=== PATIENT | female | born 1955 | race Caucasian/White ===

== ENCOUNTER 2020-06-10 15:48 | Inpatient (IN) | payer OTHER, BC ==
[~2020-06-10] VITALS: Ht 157.5 cm; Wt 83.9 kg
[~2020-06-10 15:48] MED LIST: BISOPROLOL FUMAR5 MG PO; FOLIC ACID0.4 MG PO; HYDROCODON-ACE1 EAC7 PO; HYDROXYCHLOROQ200 M1 PO; IBU-200200 MG PO; LEVOTHYROXINE137 MCG PO; LISINOPRIL-HCT1 EAC2 PO; MAGNESIUM100 MG PO; MULTIVITAMINS PO; VITAMIN D325 MC3 PO
[2020-06-10 15:52] VITALS: BP 139/77
[2020-06-10] MEDS ORDERED: ROXICODONE5 MG PO (17:29)
[2020-06-10] MEDS ORDERED: MORPHINE SULFAT15 MG PO (17:29)
[2020-06-10 17:38] LABS: ABSOLUTE NEUTROPHILS 4.6 thou/uL (1.4-8.2); BASOPHILS 0.7 % (0.0-2.0); EOSINOPHILS 0.5 % (0.0-3.0); HEMATOCRIT 32.5 % (37.0-47.0); HEMOGLOBIN 10.8 gm/dL (12.0-15.0); LYMPHOCYTES 12.3 % (24.0-44.0); MCH 28.5 pg (26.0-34.0); MCHC 33.2 g/dL (28.0-37.0); MCV 85.8 fL (80.0-100.0); PLATELET COUNT 478 thou/uL (150-400); POLYS 77.5 % (36.0-66.0); RBC 3.79 mil/uL (4.20-5.00); RDW 15.5 % (10.5-14.5)
[2020-06-10 17:47] LABS: CALCIUM 9.2 mg/dL (8.5-10.1); CREATININE 0.8 mg/dL (0.6-1.0); POTASSIUM 3.4 mmol/L (3.5-5.1)
[2020-06-10 17:55] LABS: ALBUMIN 3.3 g/dL (3.4-5.0); TOTAL BILIRUBIN 0.5 mg/dL (0.2-1.0); TOTAL PROTEIN 7.3 g/dL (6.4-8.2)
[2020-06-10 18:17] VITALS: BP 160/69
--- NOTE | 2020-06-10 18:24 | NUR ---
ED NURSE ATTEMPTED TO CALL REPORT TO INPATIENT NURSE, WAS TOLD SHE WILL CALL BACK IN 5 MINUTES
[2020-06-10 18:50] VITALS: BP 148/77
[2020-06-10 20:49] VITALS: BP 152/81
[2020-06-11 00:25] LABS: URINE BILIRUBIN NEGATIVE (Negative); URINE BLOOD NEGATIVE (Negative); URINE CLARITY CLEAR; URINE COLOR YELLOW; URINE GLUCOSE-RANDOM* NEGATIVE (Negative); URINE KETONES NEGATIVE (Negative); URINE LEUKOCYTES-REFLEX NEGATIVE (Negative); URINE NITRITE-REFLEX NEGATIVE (Negative); URINE PROTEIN (DIPSTICK) NEGATIVE (Negative); URINE SPECIFIC GRAVITY >= 1.030 (1.005-1.035); URINE UROBILINOGEN 0.2 E.U./dl (0.2-1.0)
[2020-06-11 04:50] VITALS: BP 133/78
--- NOTE | 2020-06-11 07:34 | NUR ---
PT WAS ADMITTED TO THE UNIT FROM THE ER IN A STABLE CONDITION.PT C/O PAIN ON HER L LEG,MANAGED WITH MED.UA SENT JANY TO LAB.L LEG INCISION RED AND WARM TO TOUCH.PT WAS STARTED ON LOVENOX FOR HER DVT FIRST DOSE GIVEN THIS SHIFT.REPORT TO AM NURSE.
[2020-06-11 07:59] VITALS: BP 130/70
--- NOTE | 2020-06-11 09:27 | NUR ---
ASSESSMENT: CM REVIEWED CHART AND SPOKE WITH PT. PT IS ALERT AND ORIENTED X4. PT WAS ADMITTED DUE TO KNEE FX. PT HAD A L TKA AT [facility] ON 05/26 AND NOW HAS A PERIPROSTHETIS FX. PT IS TO USE KNEE IMMOBILIZER. PT LIVES IN A HOUSE ALONE. PT REPORTS HAVING A RAMP TO ENTER THE HOME AND DOES NOT HAVE TO USE ANY STEPS. PT REPORTS SHE HAS A CANE AND A WALKER AT THE HOME. PT WAS [facility]TING [facility] . CM NOTIFIED [facility] OF PTS ADMISSION AND WILL CONTINUE TO UPDATE. A CONSULT HAS BEEN PLACED FOR 5N ACUTE REHAB. CM NOTIFIED [facility]. AWAITING FURTHER INPUT AT THIS TIME AND THERAPY EVAL. CM WILL CONTINUE TO FOLLOW TO ASSIST NEEDED.
--- NOTE | 2020-06-11 13:34 | NUR ---
I have reviewed the documentation by LISE PENDLETON from 06/11/20 to 06/11/20 and I concur with it. EVERETTE SHI, PT, DPT
[2020-06-11 15:19] VITALS: BP 140/78
--- NOTE | 2020-06-11 15:46 | NUR ---
PT CARE ASSUMED AT 0700. A&Ox4. IMMOBILIZER IN PLACE ON L.LEG. PER DR. PEREZ PT CAN GET UP TO THE RECLINER AND CAN MOBILIZE WHEN IMMOBILIZER IN PLACE. 5N FOLLOWING CASE. IV PATENT WITH NO REDNESS OR EDEMA, SALINE LOCKED. PAIN CONTROLLED WELL WITH PAIN MEDICATION ON BOARD. FALL PROTOCOL IN PLACE. CALL LIGHT IN REACH. DVT POSITIVE, NO SCD'S IN PLACE. REPORT GIVEN TO JAVY SCHAFER AT 4130 AND CARE HANDED OVER.
[2020-06-11 19:46] VITALS: BP 135/81
--- NOTE | 2020-06-12 03:29 | NUR ---
ASSUMED PT CARE AT SHIFT CHANGE. PT IS A&OX4. PT IS PLEASANT. PT HAS AN IV IN HER RIGHT AC. PT USES WALKER WITH IMMOBILIZER IN PLACE TO USE THE BSC. PT PREFERS TO TAKE IT OFF WHILE SHE IS IN BED. PT DECIDED TO USE THE BEDPAN OVERNIGHT BECAUSE IT TAKES WHAT SHE FEELS LIKE IS TOO LONG TO GET OUT OF BED. PT CALLS OUT APPRPRIATELY. PT STATES THAT SHE IS IN PAIN AND MEDICATION IS ADMINISTERED. FALL PRECAUTIONS IN PLACE. WILL CONTINUE TO MONITOR.
[2020-06-12 03:38] LABS: HEMATOCRIT 30.5 % (37.0-47.0); HEMOGLOBIN 10.1 gm/dL (12.0-15.0); MCH 28.6 pg (26.0-34.0); MCHC 33.2 g/dL (28.0-37.0); PLATELET COUNT 418 thou/uL (150-400); RBC 3.54 mil/uL (4.20-5.00); RDW 15.8 % (10.5-14.5); WBC 3.8 thou/uL (4.0-11.0)
[2020-06-12 04:09] VITALS: BP 136/77
[2020-06-12 04:10] LABS: CALCIUM 8.6 mg/dL (8.5-10.1); CREATININE 0.7 mg/dL (0.6-1.0); POTASSIUM 3.8 mmol/L (3.5-5.1)
[2020-06-12 07:16] VITALS: BP 135/70
[2020-06-12 08:05] VITALS: BP 135/70
[2020-06-12 08:39] LABS: ABSOLUTE NEUTROPHILS 2.5 thou/uL (1.4-8.2); ATYPICAL LYMPHS 1 %; LARGE PLATELETS OCCASIONAL
[2020-06-12] MEDS ORDERED: ELIQUIS5 MG PO (10:57)
[2020-06-12] MEDS ORDERED: PERCOCET 10-321 EACH PO (10:58)
[2020-06-12] MEDS ORDERED: PERCOCET PO (10:58)
--- NOTE | 2020-06-12 11:01 | NUR ---
ON-GOING ASSESSMENT: CM REVIEWED CHART AND SPOKE WITH ATTENDING AND [facility]N [facility]. PT IS MEDICALLY STABLE FOR DISCHARGE TO 5N TODAY. 5N [facility] STATING THEY CAN ACCEPT PT. PT IS AGREEABLE WITH PLAN AND STATES SHE WILL NOTIFY HER FAMILY. PLANS TO DISCHARGE TO 5N TODAY.
--- NOTE | 2020-06-12 12:59 | NUR ---
I have reviewed the documentation by LISE PENDLETON from 06/12/20 to 06/12/20 and I concur with it. EVERETTE SHI, PT, DPT
--- NOTE | 2020-06-12 13:54 | NUR ---
ASSUMED CARE OF PT AT 0700. PT IS A&OX4 AND VITAL SIGNS ARE STABLE. PT REPORTS PAIN TO LEFT KNEE BUT STATES THAT IT IS WELL CONTROLED AT THIS TIME. PT DENIES CHEST PAIN OR SOB THIS SHIFT. PT UP WITH ASSISTANCE WITH BRACE IN PLACE AND IS AWARE OF LIMITATIONS. ORDERS FOR DISCAHRGE TO REHAB THIS SHIFT. CALLED REPORT TO MAXIMINO PRIOR TO TRANSFER TO UNIT AT 1240.
== END 2020-06-12 12:34 | DRG 560 ==
LOC: ER 15:48 → 4S 17:31 → EROBS 17:31 → 4S 18:50
PROVIDERS: Emergency Medicine; Nurse Practitioner; ADMIT Orthopaedic Surgery Sports Medicine; ATTEND Orthopaedic Surgery Sports Medicine
DX: M97.12XA Periprosthetic fracture around internal prosthetic left knee joint, initial encounter (principal); I82.402 Acute embolism and thrombosis of unspecified deep veins of left lower extremity; E44.0 Moderate protein-calorie malnutrition; Z60.2 Problems related to living alone; M25.562 Pain in left knee; Z96.652 Presence of left artificial knee joint; M06.9 Rheumatoid arthritis, unspecified; I10 Essential (primary) hypertension; E03.9 Hypothyroidism, unspecified; M25.462 Effusion, left knee; E66.9 Obesity, unspecified; Z79.899 Other long term (current) drug therapy; M85.88 Other specified disorders of bone density and structure, other site; M81.0 Age-related osteoporosis without current pathological fracture; Z90.49 Acquired absence of other specified parts of digestive tract; Z88.2 Allergy status to sulfonamides; Z87.891 Personal history of nicotine dependence; Z95.1 Presence of aortocoronary bypass graft; Z68.33 Body mass index [BMI] 33.0-33.9, adult; Z79.82 Long term (current) use of aspirin; D64.9 Anemia, unspecified
CPT/HCPCS: 10195

== ENCOUNTER 2020-06-12 09:34 | Inpatient (IN) | payer OTHER, BC ==
[~2020-06-12] VITALS: Ht 157.5 cm; Wt 83.9 kg
[~2020-06-12 09:34] MED LIST changes: +MORPHINE SULFAT15 MG PO; +ROXICODONE5 MG PO
[2020-06-12] MEDS ORDERED: ELIQUIS5 MG PO (10:57)
[2020-06-12] MEDS ORDERED: PERCOCET 10-321 EACH PO (10:58)
[2020-06-12] MEDS ORDERED: PERCOCET PO (10:58)
[2020-06-12 12:45] VITALS: BP 130/67
--- NOTE | 2020-06-12 13:44 | NUR ---
PT ARRIVED AT 1150 FROM 4S. ALERT AND ORIENTED*4. C/O MILD JOHANNA KNEE PAIN 4/, LIDOCAINE PATCH PLACED ON RIGHT KNEE PER PT'S REQUEST. VITALS ARE STABLE. LEFT KNEE INCISION REMAINS DRY AND INTACT, KNEE IMMOBILISER REMAINS IN PLACE WHEN UP AND WITH ACTIVITIES. PT UP WITH 1 MIN ASSIST, GB AND WALKER WITH 50LB WGT BEARING ON LEFT LE. Q1H VISUAL CHECKS. CALL LIGHT WITHIN REACH. FALL PRECAUTIONS IN PLACE.
--- NOTE | 2020-06-12 16:25 | NUR ---
chart review. cm visited with david. intro to cm, team meeting and dcp. she is a & o x 3, pleasant and able to make her needs know. david lives in house alone, has a ramp. no stairs. lle mitzi villalba, fww, "my sister got me 4ww with seat. have some suport from my little younger sister, but she works. have friend that take me to my appointments. [facility] prior to hospital ."/david. has bsc, retired. manage own medication. was independet proir to hospital. still cooks and drives vehicle. "pcp dr oviedo"/david. will cont following as needed for dc needs.
[2020-06-12 22:01] VITALS: BP 104/66
--- NOTE | 2020-06-13 04:17 | NUR ---
ASSUMED CARE APPROX 1900 EVENING 06/12. PT SITTING IN RECLINER ALERT AND ORIENTED X4, PLEASANT AND COOPERATIVE. PT ASSISTED INTO GOWN AT HS AND BED. PT TOOK HS MEDS WITH WATER TOLERATING WELL. PT ASSIST WITH BEDPAN TO VOID LARGE AMT URINE TONIGHT. PT APPEARS TO BE SLEEPING SOUNDLY WITH HOURLY ROUNDING CHECKS. BED ALARM ON AND CALL LIGHT IN REACH. WILL CONTINUE TO MONITOR.
[2020-06-13 05:22] LABS: HEMATOCRIT 31.6 % (37.0-47.0); HEMOGLOBIN 10.4 gm/dL (12.0-15.0); MCH 28.7 pg (26.0-34.0); MCV 86.8 fL (80.0-100.0); RBC 3.64 mil/uL (4.20-5.00); RDW 15.9 % (10.5-14.5); WBC 4.1 thou/uL (4.0-11.0)
[2020-06-13 06:00] LABS: CALCIUM 8.8 mg/dL (8.5-10.1); CREATININE 0.7 mg/dL (0.6-1.0); POTASSIUM 3.9 mmol/L (3.5-5.1)
[2020-06-13 07:15] VITALS: BP 142/89
[2020-06-13 19:14] VITALS: BP 121/78
--- NOTE | 2020-06-13 20:00 | NUR ---
ASSUMED CARE OF PT AT 0700. PT IS A&OX4 AND VITAL SIGNS ARE STABLE. PT REPORTS PAIN TO LLE, MANAGED WITH PO MEDICATIONS. PT PARTICIAPTED IN SCHEDULED THERAPIES. LEG BRACE TO LLE IN PLACE WHEN AMBULATORY. PT CALLS APPROPRIATELY FOR ASSISTANCE. FALL PRECAUTIONS IN PLACE AND NURSING WILL CONTINUE TO MONITOR.
--- NOTE | 2020-06-14 01:50 | NUR ---
PT ASSESSMENT COMPLETED AND VSS. MEDS GIVEN ORDERED AND WELL TOLERATED. PT UP TO BSC AND USED A BEDPAN. SHE WAS AFRAID OF NOT GETTING ENOUGH SLEEP IF SHE HAD TO WALK TO THE BATHROOM EACH TIME SHE HAD TO GO. VOIDING LARGE AMOUNT OF YELLOW URINE. L KNEE SURGICAL SITE HEALING WELL. SLEEPING AT THIS TIME. WILL CONTINUE TO MONITOR FREQUENTLY.
[2020-06-14 07:15] VITALS: BP 123/72
--- NOTE | 2020-06-14 14:42 | NUR ---
ASSUMED CARES AT 0700. PT AWAKE, ALERT AND ORIENTED*4. VITALS REMAIN STABLE. PT C/O PAIN IN LEFT KNEE, OXYCODONE, LIDOCAINE PATCH AND VOLTAREN GEL APPLIED NEEDED TO MUSCLES AND LEFT KNEE. LEFT KNEE INCISION REMAINS INTACT, CHRISTIANA. BRACE ON WITH ACTIVITIES AND WHEN UP. PT PARTICIPATED IN ALL THERAPIES TODAY AND TOLERATED WELL. UP WITH 1 MIN ASSIST, 50LB WGT BEARING LLE, GB AND WALKER. Q1H VISUAL CHECKS. CALL LIGHT WITHIN REACH. FALL PRECAUTIONS IN PLACE.
[2020-06-14 19:28] VITALS: BP 148/72
--- NOTE | 2020-06-15 02:34 | NUR ---
ASSESSMENT COMPLETED. SHE IS ALERT AND ORIENTED.L KNEE INCISION ORDER CALLER. NO HEMATOMA NOTED. SOME EDEMA.PT ASKED TO USE THE BEDPAN IN THE NIGHT. SHE IS VOIDING OKAY. GIVEN PERCOCET FOR PAIN WITH RELIEF.DENIES SOA OR COUGH. AFEBRILE.NO CONCERNS AT THIS TIME. SHE SEEMS TO BE RESTING WELL.WILL CONTINUE WITH POC TILL EOS.
[2020-06-15 06:15] VITALS: BP 138/78
--- NOTE | 2020-06-15 14:29 | NUR ---
ASSUMED PT CARE THIS AM. PT VSS, A&OX4. PT AMBULATES TO THE BATHROOM, USING WALKER AND BRACE. PT POSITIONED IN CHAIR WITH HEELS OFFLOADED. PT COMPLAINS OF PAIN IN KNEE, MANAGED WITH MEDICATION PER EMAR. PT CALLS APPROPRIATELY WHEN NEEDED.
[2020-06-15 20:00] VITALS: BP 114/79
--- NOTE | 2020-06-16 01:34 | NUR ---
ABLE TO PUT ON KNEE BRACE ALONE BEFORE GETTING UP TO BSC WITH ASSIST, APPRECIATES PAIN MED. ICE TO KNEE TO MINIMIZE SWELLING. KNEE INCISION IS OPEN TO AIR WITH EDGES WELL APPROXIMATED.
[2020-06-16 08:37] VITALS: BP 145/75
--- NOTE | 2020-06-16 13:35 | NUR ---
team meeting, reccomendation: no driving until cleared by MD. [facility] 06/[facility]/2020 [facility] (pt, nursing, ot ). no dme.
--- NOTE | 2020-06-16 15:20 | NUR ---
ASSUMED CARES AT 0700. PT AWAKE, ALERT AND ORIENTED*4. C/O JOHANNA KNEE PAIN, WORSE OF LEFT KNEE, PAIN MEDICATION AND MUSCLE RELAXER ADMINISTERED NEEDED. LEFT KNEE INCISION REMAINS DRY AND INTACT, LEG BRACE ON WITH ALL ACTIVITIES. LLE REMAINS 50LB WEIGHT BEARING. UP WITH 1 MIN ASSIST, GB AND WALKER AND TOLERATED WELL. Q1H VISUAL CHECKS. CALL LIGHT WITHIN REACH. FALL PRECAUTIONS IN PLACE
[2020-06-16 19:40] VITALS: BP 139/87
--- NOTE | 2020-06-17 01:21 | NUR ---
UP TO BSC AFTER PUTTING ON KNEE IMMOBILIZER. TRYING TO TAKE PAIN MED EVERY 4 HOURS TO STAY AHEAD OF THE PAIN, 10 MG PERCOCET AT HS, PLANS TO TAKE ONLY 5 MG AT 0200 AND PERHAPS PRN ROBAXIN WELL. LIDODERM PATCHES ON BOTH KNEES ARE OFF AT THIS TIME.
[2020-06-17 08:00] VITALS: BP 120/73
--- NOTE | 2020-06-17 14:02 | NUR ---
FAXED REFERRAL TO [facility] SPOKE WITH [facility] IN INTAKE THEY CAN ACCEPT AT DISCHARGE 06/23.
[2020-06-17 14:03] VITALS: BP 120/73
--- NOTE | 2020-06-17 15:12 | NUR ---
PATIENT REMAIN ALERT, AND ORIENTED X 3-4, ABLE TO VOICE NEED. PATIENT TOOK MORNING MEDICATION WHOLE WITHOUT DIFFICULTY, CHOOSE NOT TO TAKE MIRALAX. PATIENT IS CALM, COOPERATIVE WITH CARE. LUNGS DIMINISHED, BUT CLEAR IN ALL LOBE PER AUSCULTATION. PRN OXYCODONE 10MG GIVEN AT 1147AM WITH PARTIAL EFFECT. IMOBILIZER IN PLACE TO LEFT LEG. PATIENT AMBULATES TO BATHROOM WITH ASSIST OF ROLER WALKER, GAIT BELT, AND STAFF STANDBY. PATIENT TOLERATING THERAPY WELL. NO SIGN OF ACUTE DISTRESS NOTED AT THIS TIME, CALL LIGHT IN REACH, WILL CONTINUE TO MONITOR.
[2020-06-17 20:21] VITALS: BP 122/53
--- NOTE | 2020-06-18 02:17 | NUR ---
ASSUMED CARES AT 1900. PT AWAKE, ALERT AND ORIENTED*4. C/O LEFT KNEE PAIN, PAIN MEDICATION ADMINISTERED NEEDED Q4H. VITALS REMAIN STABLE. LEFT KNEE INCISION REMAINS DRY AND INTACT. KNEE BRACE IN PLACE WITH TRANSFERS ACTIVITIES. PT UP WITH SUPERVISION, GB AND WALKER AND TOLERATED WELL. SLEPT WELL THROUGH THE NIGHT. Q1H VISUAL CHECKS. CALL LIGHT WITHIN REACH. FALL PRECAUTIONS IN PLACE.
[2020-06-18 08:08] VITALS: BP 121/71
[2020-06-18 19:33] VITALS: BP 117/72
--- NOTE | 2020-06-18 19:48 | NUR ---
ASSUMED CARE OF PT AT 0700. PT IS A&OX4 AND VITAL SIGNS ARE STABLE. PT REPORTS PAIN TO LLE, PARTIALLY MANAGED WITH PO MEDICATIONS. PT CALLS APPROPRIATELY FOR ASSISTANCE. BRACE TO LLE IN PLACE WHEN OOB. FALL PRECAUTIONS IN PLACE AND NURSING WILL CONTINUE TO MONITOR.
--- NOTE | 2020-06-19 01:50 | NUR ---
MANAGING VELCRO OF OWN BRACE AND MAKING SURE THAT IT IS ON BEFORE SHE GETS UP. CONSIDERS TAKING PAIN MED EVERY 4 HOURS, TOOK PERCOCET 5 RATHER THAN 10 AT MIDNIGHT AFTER TAKING 10 AT HS BECAUSE SHE HAD GONE ABOUT SIX HOURS SINCE THE AFTERNOON AND IT "WAS REALLY STARTING TO HURT" USING BSC
[2020-06-19 04:48] LABS: CALCIUM 9.2 mg/dL (8.5-10.1); CREATININE 0.7 mg/dL (0.6-1.0); MAGNESIUM 2.2 mg/dL (1.8-2.4); POTASSIUM 4.1 mmol/L (3.5-5.1)
[2020-06-19 04:50] LABS: HEMATOCRIT 32.5 % (37.0-47.0); HEMOGLOBIN 10.7 gm/dL (12.0-15.0); MCH 28.7 pg (26.0-34.0); PLATELET COUNT 413 thou/uL (150-400); RBC 3.73 mil/uL (4.20-5.00); RDW 16.4 % (10.5-14.5); WBC 3.4 thou/uL (4.0-11.0)
[2020-06-19 08:00] VITALS: BP 114/75
[2020-06-19 10:10] LABS: ABSOLUTE NEUTROPHILS 1.7 thou/uL (1.4-8.2); PLATELET ESTIMATE NORMAL
--- NOTE | 2020-06-19 15:35 | HC ---
[facility] [place] [address] CONSULTATION Name: MARIMAR HOSKINS Room #: 504-1 ADM IN M.R.#: [id number] Admission: 06/12/20 Attend Phys: Earl Flores MD Discharge: Date of : 51 Report #: [id number] THIS REPORT FOR: cc: Damaris Mendoza MD, Kristin E. MD Deutch,Saul Acosta. PhD ~ DATE OF SERVICE: 06/14/2020 BEHAVIOURAL STATUS EXAM ATTENDING PHYSICIAN: Earl Folres MD BEACH LIFEGUARD: Saul Yen, PhD CLINICAL PRESENTATION: The patient is a 65-year-old female initially admitted to the hospital with pain in her left knee. She had a left total knee replacement and was able to ambulate and discharged home. However her knee pain became progressively worse and she was readmitted with CT revealing a left distal femur fracture. The patient has severe osteoporosis and osteopenia. Her admission to the rehabilitation unit was left distal periprosthetic femur fracture, left lower extremity DVT, left total left knee replacement on 05/26/2020, rheumatoid arthritis, hypertension, osteoporosis, osteopenia and anemia. A complete description of her medical condition and history can be found in her medical record. Neuropsychological consultation was requested to provide assistance in the assessment of cognitive and emotional status and to provide recommendations and services. Prior to this most recent medical event, the patient was living alone in her own home. She is a high school graduate. 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 She was about 10 years ago. She does not have children. She reports having been independent with instrumental activities of daily living including driving. She has a younger sister that has been providing assistance for her as needed. TECHNIQUES UTILIZED: Clinical interview, review of medical records, staff consultation and behavioral observation, mini mental status exam 2 standard version and clock drawing. EXAMINATION FINDINGS: The patient was alert and cooperative with the assessment. She accurately described events surrounding her admission. There is no evidence of aphasia. She does not report auditory or visual hallucinations. She reports having increased anxiety, primarily associated with her recovery. Mild degree of depression is also noted. She does not report [facility] [address] [place] [address] CONSULTATION Name: MARIMAR HOSKINS Room #: 504-1 ADM IN .R.#: [id number] Admission: 06/12/20 Attend Phys: Earl Flores MD Discharge: Date of : 51 Report #: [id number] difficulty with sleep, appetite. However, brain fog is described along with some difficulty in word finding. Her performance was within normal limits on the MMSE 2 brief version with a score 16 of 16. Performance on the MMSE 2 standard version was within normal limits with a score of 29 of 30. The only deficit on the mental status evaluation is visual spatial construction and that she had difficulty copying a simple geometric design. Clock drawing is within normal limits. The patient is presenting with fairly well maintained cognitive functioning. Increased anxiety about her recovery and variability in mood is likely to contribute to intermittent difficulty with cognitive functioning. DIAGNOSTIC IMPRESSION: Unspecified anxiety disorder with depression. RECOMMENDATIONS: The patient will benefit from verbal praise and complements in regard to her recovery. Assistance in identifying areas of functioning that have improved with emphasizing improved endurance and ability to manage independently. The patient may have had early cognitive changes, which have now resolved. Thank you very much for allowing me to provide the consultation on this patient. <ELECTRONICALLY SIGNED> By: Saul Yen, PhD 06/19/20 [id number] Saul Yen, PhD /nt
--- NOTE | 2020-06-19 18:31 | NUR ---
ASSUMED CARE OF PT AT 0700. PT IS A&OX4 AND VITAL SIGNS ARE STABLE. PT REPORTS PAIN, MANAGED WITH PO MEDICATIONS. PT PARTICIPATED IN SCHEDULED THERAPIES. ORDERS FOR PT TO BE MOD I IN ROOM. BRACE TO LEFT LEG WHEN OOB. CALLS APPROPRIATELY FOR ASSISTANCE, FALL PRECAUTIONS IN PLACE AND NURSING WILL CONTINUE TO MONITOR.
[2020-06-19 20:00] VITALS: BP 163/81
--- NOTE | 2020-06-20 05:14 | NUR ---
06-19-20 CARE TRANSFERRED 1899. PT AAOX4, VSS, RR EVEN AND NONLABORED ON RA. PT REPORTED PAIN AND PAIN MANAGED WITH PO MEDICATION. OBSERVED PT PLACE LEFT KNEE BRACE ON AND STANDBY ASSIST TO BATHROOM, PT HAS ALTERED STEADY GAIT. ZERO S/S OF ACUTE DISTRESS NOTED, PT WLL CONTINUE TO BE MONITOR.
[2020-06-20 08:00] VITALS: BP 135/73
--- NOTE | 2020-06-20 19:06 | NUR ---
ASSUMED CARE OF PT AT 0700. PT IS A&OX4 AND VITAL SIGNS ARE STABLE. PAIN MANAGED WITH PO MEDICATIONS. PT MOD I IN ROOM DURING THE DAY. PT APPLIES BRACE INDEPENDENTLY WHEN OOB. REPORTED CONSTIPATION, BOWEL MEDICATIONS ADMINISTERED THIS AM AND HAD LARGE BOWEL MOVEMENT THIS AFTERNOON. FALL PRECAUTIONS IN PLACE AND NURSING WILL CONTINUE TO MONITOR.
[2020-06-20 19:12] VITALS: BP 114/66
--- NOTE | 2020-06-20 22:23 | NUR ---
PT ALERT AND ORIENTED X 4. AMB TO BR WITH SBA X 1 AND WALKER WITHOUT DIFFICULTY. LEFT LEG BRACE ON. LEFT KNEE INCISION C/D/I WITH GLUE. PT C/O PAIN IN LEFT KNEE. OXYCODONE GIVEN AT START OF SHIFT. PT APPEARS TO BE SLEEPING ON HOURLY ROUNDS.
[2020-06-21 08:16] VITALS: BP 127/73
--- NOTE | 2020-06-21 19:47 | NUR ---
ASSUMED CARE OF PT AT 0715. A&XO4. IS ON ROOM AIR. IS STABLE. REPORTS PAIN IN L KNEE THAT IS BEING MANAGED WITH PAIN MEDS & ICE THERAPY. INCISION WITH DERMABOND INTACT. BRACE INTACT ALSO. PT IS UP MOD I IN ROOM WITH WT BEARING LIMITATIONS. HOURLY ROUNDING MAINTAINED. LABS & VITALS REVIEWED. PT IS CURRENTLY RESTING IN BED. CALL LIGHT WITHIN REACH. WILL CONTINUE TO MONITOR.
[2020-06-21 19:50] VITALS: BP 129/81
--- NOTE | 2020-06-22 01:31 | NUR ---
UP MOD I IN ROOM WITH KNEE IMMOBILIZING BRACE THAT SHE PUTS ON HERSELF AND TAKING CARE TO USE WALKER IN ORDER TO BEAR LESS THAN 1/3 OF HER WEIGHT ON HER LLE. TAKING PAIN MED EVERY 4-6 HOURS
[2020-06-22 09:28] VITALS: BP 145/79
--- NOTE | 2020-06-22 09:56 | NUR ---
cm notified by physical therapist report been trying to reach [employer] that fww is way to tall and big for her, she is 5'2. she will need safe for dc. cm called [facility] pt [phone], they will deliver a jr size fww today before 4pm and take other walker back that was just issued to her on 05/29/2020. will cont following as needed for dc needs.
--- NOTE | 2020-06-22 15:25 | NUR ---
ASSUMED CARE AT 0700. PT IS ALERT AND ORIENTATED. SLEPT WELL. REPORTED PAIN AT 7/10 TO L KNEE, MEDICATED WITH PERCOCET WITH PARTIAL RELIEF. PT IS MOD I IN THE ROOM. PARTICIPATING IN THERAPIES AND PROGRESSING TOWARDS GOAL. IMMOBILIZER TO L KNEE IN PLACE WITH SOME SWELLING. ON ELIQUIS FOR DVT AND NO SIGN OF BLEEDING NOTED. HAD A BM TODAY. APPETITE GOOD. PLAN FOR DISCHARGE HOME TOMORROW. CONT TO MONITOR.
[2020-06-22 19:23] VITALS: BP 123/65
--- NOTE | 2020-06-23 01:44 | NUR ---
ABLE TO CHANGE CLOTHES AND REMOVE AND REPLACE KNEE IMMOBILIZER WHEN GETTING OUT OF BED, UP MOD I IN ROOM. TAKING PAIN PILL EVERY 4-6 HOURS FOR PAIN, LOOKING FORWARD TO GOING HOME TODAY. AWARE OF NEED TO CONTINUE BLOOD THINNER.
[2020-06-23 08:00] VITALS: BP 127/70
[2020-06-23] MEDS ORDERED: ROBAXIN 750 MG750 MG PO (08:28)
[2020-06-23] MEDS ORDERED: ELIQUIS5 MG PO (08:28)
[2020-06-23] MEDS ORDERED: MIRALAX17 GM PO (08:28)
[2020-06-23] MEDS ORDERED: LIDOPATCH1 EACH TRANSDERM (08:28)
[2020-06-23] MEDS ORDERED: VOLTAREN100 GM TOP (08:28)
--- NOTE | 2020-06-23 09:27 | NUR ---
cm brought pt another senior blue book, cm cont to wear face mask and shield during visit. she stated " oh i have one but i take another i guess. thank you. got the walker changed out yesterday from [facility]"/nancy. [facility] home today with [facility].
[2020-06-23 10:02] VITALS: BP 120/73
[2020-06-23 10:12] VITALS: BP 120/73
--- NOTE | 2020-06-23 15:12 | NUR ---
PT DISCHARGING TODAY TO HOME WITH [facility] FAXED DC ORDERS/SUMMARY SPOKE WITH OJ IN INTAKE SHE RECEIVED ORDERS AND START OF CARE IS TOMORROW 06/24 THEY WILL CALL PT TO ARRANGE TIME OF VISITS.
--- NOTE | 2020-06-23 16:05 | NUR ---
ASSUMED CARE OF PT AT 0700. PT IS A&OX4 AND VITAL SIGNS ARE STABLE. PT REPORTS PAIN MANAGED WITH PO MEDICATIONS. PT MOD I IN ROOM DURING DAY. BRACE TO LLE IN PLACE WHEN OOB. ORDERS FOR DISCHARGE THIS SHIFT. REVIEWED DISCHARGE EDUCATION, F/U APPOINTMENTS, MEDICATIONS, AND INSTRUCTIONS PRIOR TO DISCHARGE. PRESCRIPTION SCRIPT GIVEN IN D/C PACKET AND OTHER MEDICATIONS SENT TO PT PHARMACY. BELONGINGS GATHERED BY PATIENT AND REMOVED FROM ROOM AT TIME OF DISCHARGE. PT LEFT UNIT AT APPROXIMATELY 1230.
== END 2020-06-23 12:27 | disposition home health service (06) | DRG 560 ==
PROVIDERS: Nurse Practitioner; Nurse Practitioner Family; ADMIT Physical Medicine & Rehabilitation; ATTEND Physical Medicine & Rehabilitation
DX: M97.02XA Periprosthetic fracture around internal prosthetic left hip joint, initial encounter (principal); I82.402 Acute embolism and thrombosis of unspecified deep veins of left lower extremity; E44.0 Moderate protein-calorie malnutrition; D64.9 Anemia, unspecified; M81.0 Age-related osteoporosis without current pathological fracture; I10 Essential (primary) hypertension; M06.9 Rheumatoid arthritis, unspecified; E03.9 Hypothyroidism, unspecified; F41.8 Other specified anxiety disorders; M85.80 Other specified disorders of bone density and structure, unspecified site; M19.90 Unspecified osteoarthritis, unspecified site; Z87.891 Personal history of nicotine dependence; Z88.2 Allergy status to sulfonamides; Z90.49 Acquired absence of other specified parts of digestive tract; Z68.33 Body mass index [BMI] 33.0-33.9, adult
CPT/HCPCS: 10112